=== PATIENT | female | born 2005 | race Caucasian/White ===

== ENCOUNTER 2024-05-08 01:54 | Emergency (ER) | payer OTHER, SELFPAY ==
--- NOTE | 2024-05-08 02:00 | ED_ITS ---
<Statement entered by Jake Marino MD - 05/09/24 10:15> Patient was initially seen by Dr. Oro and was treated for a generalized allergic reaction. The patient does not have a history of significant allergic reactions. She was observed and seemed to be sleepy, likely from the diphenhydramine. After 2 hours of observation I felt she was well enough for discharge with her mother. The mother understands that should follow up with the PCP and that the patient may need allergy testing. Dr. Oro discharge instructions included a prescription for an EpiPen. HPI - General Adult General Chief complaint: Allergic Reaction Stated complaint: allergic reaction Time Seen by Provider: 05/08/24 02:00 Source: patient Mode of arrival: ambulatory Limitations: no limitations History of Present Illness ED Provider: Dr. Roxanne Oro HPI narrative: Patient comes to the emergency room complaining of an allergic reaction. Patient states she was eating cashews and within a few minutes patient started developing hives, becoming flushed, itchy and her eyelids started swelling. Patient states that to her knowledge she does not have any allergies to peanuts. Patient denies any allergies to medications. Patient complaining of feeling very nauseous. Related Data Previous Rx's ?Medication ?Instructions ?Recorded epinephrine 0.3 mg/0.3 mL 0.3 mg (0.3 mL) IM Q4H PRN 05/08/24 injection, auto-injector (EpiPen) anaphylaxis #2 ea Allergies Allergy/AdvReac Type Severity Reaction Status Date / Time peanut AdvReac Anaphylaxis Verified 05/08/24 02:08 Review of Systems Review of Systems: Constitutional : No Weight loss, No Fever, No Chills, No Night Sweats, No Fatigue, No Malaise ENT/Mouth : No Hearing loss, No Ear Pain, No Nasal Congestion, No Sinus Pain, No Hoarseness, No sore throat, No Rhinorrhea, No Swallowing Difficulty Eyes: No Eye Pain, No Swelling, No Redness, No Foreign Body, No Discharge, No Vision Changes Cardiovascular : No Chest Pain, No SOB, No Dyspnea on Exertion, No Orthopnea, No Edema, No Palpitations Respiratory : No Cough, No Sputum, No Wheezing, No Smoke Exposure, No Dyspnea Gastrointestinal : Complaining of nausea and vomiting, No Diarrhea, No C onstipation, No abdominal Pain, No Hematochezia, No Melena Genitourinary : no irregular bleeding, No Dysuria, No Urinary Frequency, No Hematuria, No Urinary Incontinence, No Urgency, No Flank Pain, No Urinary Flow Changes, No Hesitancy Musculoskeletal : No joint pain, No Myalgias, No Joint Swelling Skin : Patient complaining of skin flushing, diffuse hives, itching Neuro : No Weakness, No Numbness, No Paresthesias, No Loss of Consciousness, No Dizziness, No Headache Psych : No Anxiety/Panic, No Depression, No SI/HI/AH/VH, No Social Issues, Heme/Lymph: No Bruising, No Bleeding,No Lymphadenopathy Endocrine : No Polyuria, No Polydipsia, No Temperature Intolerance Physical Exam ED Const Other: Appearance: Alert. Oriented X3. Very anxious Eyes: Pupils equal, round and reactive to light. Upper eyelids swollen, more on the right ENT: Pharynx normal. Erythematous oropharynx, normal uvula, no angioedema Neck: Normal inspection. Neck supple. No lymph nodes noted. No crepitus CVS: Normal heart rate and rhythm. Pulses normal. Normal S1 and S2 Respiratory: No respiratory distress. Breath sounds normal. No Wheezing. No rales Abdomen: Soft and nontender. No rigidity. No distention. Skin: Flushed skin, hives head to toe Extremities: No lower extremity edema. No Lacerations. No Rash Neuro: Oriented X 3. No motor deficit. No sensory deficit. Moving all extremities. No slurred speech. CN 2 through 12 grossly intact Psych: Cooperative, very anxious Course Course Course Narrative: -patient receiving IV fluids, diphenhydramine, famotidine, Solu-Medrol. Patient became very nauseous and was giving additionally Zofran. Since patient is also very anxious, a 1 mg of Ativan was given Medical Decision Making Medical Decision Making MDM Narrative: -patient's blood pressure 119/71, heart rate 120, oxygen saturation 99% on room air -patient breathing comfortably, swelling in the eyelids decreasing, urticaria decreasing, patient no longer itching -symptomatic improvement pending, sign-out given to my colleague Dr. Marino Differential Diagnosis Differential Diagnoses: The differential diagnosis associated with the presentation includes (Allergic reaction, hypersensitivity reaction) Admission/Observation Consideration of admission/observation: Escalation of care including admission/observation considered (Given patient's initial presentation, observation was considered) Critical Care Time Critical Care Time Critical Care Time: Yes Total Critical Care Time: 45 Attestation: I have personally provided critical care time. Time includes review of lab data, radiology results, discussion with consultants, and monitoring for potential decompensation. Intervention performed as documented. Discharge Plan Discharge Clinical Impression: Allergic reaction Patient Disposition: Still a Patient Instructions: General Allergic Reaction (ED), Allergy Testing (ED) Additional Instructions: Please ask your pharmacist to show you how to use the EpiPen. Please do not wait for an emergency to figure out how to use it. EpiPen are meant for life threatening emergencies which include throat closing sensation and significant difficulty breathing. A rash and itching are not indications to use an EpiPen. Please follow-up with your primary care physician tomorrow. If you have any worsening or new symptoms, please return to the emergency room or call 911 Prescriptions: New epinephrine [EpiPen] 0.3 mg/0.3 mL auto-injector 0.3 mg IM Q4H PRN (Reason: anaphylaxis) Qty: 2 0RF
[2024-05-08 02:06] VITALS: BP 110/38; PULSE 122; RESP 19; TEMP 36.4; O2SAT 99; BMI 17.3
[2024-05-08] MEDS: Famotidine/PF 20 MG/2 ML VIAL IVPUSH (02:10)
[2024-05-08] MEDS: 0.9 % Sodium Chloride 1,000 ML 999 ML IVCONT (02:10)
[2024-05-08] MEDS: diphenhydrAMINE HCL 50 MG/ML VIAL IVPUSH (02:10)
[2024-05-08] MEDS: methylPREDNISolone Sod Succ 125 MG/2 ML VIAL IVPUSH (02:10)
[2024-05-08] MEDS: ondansetron HCL 4 MG/2 ML VIAL IVPUSH (02:17)
[2024-05-08] MEDS: LORazepam 2 MG/ML VIAL 1 MG IVPUSH (02:17)
--- NOTE | 2024-05-08 02:17 | PC.NURSE ---
pt brought back from triage, place on bedside monitor, Iv, medicated per mar, Dr. Mckeon into assess pt. pt able to speak in full sentences not strider.
[2024-05-08 02:24] VITALS: BP 119/71; PULSE 132; RESP 15; O2SAT 99
[2024-05-08 04:23] VITALS: BP 107/63; PULSE 94; RESP 16; TEMP 36.8; O2SAT 96
[2024-05-08 04:24] VITALS: BP 107/63; PULSE 94; RESP 16; TEMP 36.8; O2SAT 96
== END 2024-05-08 04:25 | disposition home or self-care (01) ==
PROVIDERS: Emergency Provider Emergency Medicine; PCP Pediatrics Adolescent Medicine
DX: T78.1XXA Other adverse food reactions, not elsewhere classified, initial encounter (principal); L27.2 Dermatitis due to ingested food; R11.2 Nausea with vomiting, unspecified; X58.XXXA Exposure to other specified factors, initial encounter
CPT/HCPCS: 96361; 96374; 96375; 99284; J1200; J2060; J2405; J2919